=== PATIENT | female | born 1995 | race American Indian/Alaskan Native ===

== ENCOUNTER 2017-03-31 16:27 | Emergency (ER) | payer BC ==
[2017-03-31 16:47] VITALS: BP 136/90
--- NOTE | 2017-03-31 17:05 | Emergency Department Report ---
Chief Complaint: Abdominal Pain Stated Complaint: ABD PAIN,MIGRAINES Time Seen by Provider: 03/31/17 17:01 - HPI History of Present Illness: PT c/o abd pain x 2 days pt states she is eating more than usual - ROS Review of Systems: - f/c + nausea - vomiting - Exam Vital Signs: Vital Signs 03/31/17 16:43 Temperature 99 F Pulse Rate 90 Respiratory 18 Rate Blood Pressure 136/90 O2 Sat by Pulse 100 Oximetry Physical Exam: pt looks well, non toxic. abd soft pt has mild tenderness to LLQ and RUQ, + tenderness to RLQ MSE screening note: Focused history and physical exam performed. Due to findings the following was ordered: labs ED Disposition for MSE Condition: Stable Instructions: Abdominal Pain (ED)
[2017-03-31 17:39] LABS: Eosinophils % (Auto) 5.1 % (0.0-4.3); Hematocrit 38.9 % (30.3-42.9); Hemoglobin 12.7 gm/dl (10.1-14.3); Mean Corpuscular HGB Conc 33 % (30-34); Mean Corpuscular Hemoglobin 28 pg (28-32); Mean Corpuscular Volume 86 fl (79-97); Platelet Count 276 K/mm3 (140-440); Red Blood Count 4.54 M/mm3 (3.65-5.03); Red Cell Distribution Width 13.2 % (13.2-15.2); White Blood Count 8.6 K/mm3 (4.5-11.0)
[2017-03-31 17:52] LABS: Alanine Aminotransferase 19 units/L (7-56); Albumin 4.2 g/dL (3.9-5); Albumin/Globulin Ratio 1.3 %; Alkaline Phosphatase 75 units/L (35-129); Anion Gap 18 mmol/L; BUN/Creatinine Ratio 11.25; Blood Urea Nitrogen 9 mg/dL (7-17); Calcium 9.4 mg/dL (8.4-10.2); Carbon Dioxide 25 mmol/L (22-30); Chloride 103.2 mmol/L (98-107); Glucose 83 mg/dL (65-100); Lipase 20 units/L (13-60); Potassium 3.8 mmol/L (3.6-5.0); Sodium 142 mmol/L (137-145); Total Protein 7.4 g/dL (6.3-8.2)
[2017-03-31 18:59] LABS: Bilirubin,Urine NEG (Negative); Blood,Urine NEG (Negative); Ketones,Urine NEG (Negative); Leukocyte Esterase,Urine NEG (Negative); Mucus,Urine FEW /HPF; Nitrite,Urine NEG (Negative); Protein,Urine <15 mg/dL mg/dL (Negative); RBC,Urine < 1.0 /HPF (0.0-6.0); Urobilinogen,Urine < 2.0 mg/dL (<2.0); WBC,Urine < 1.0 /HPF (0.0-6.0)
--- NOTE | 2017-03-31 21:40 | Emergency Department Report ---
ED Abdominal Pain HPI - General Chief Complaint: Abdominal Pain Stated Complaint: ABD PAIN,MIGRAINES Time Seen by Provider: 03/31/17 17:01 Source: patient Mode of arrival: Ambulatory Limitations: No Limitations - History of Present Illness Initial Comments: This is a 21-year-old female well-nourished with nontoxic or ill in appearance but presents with diffuse abdominal pain 2 days. Patient stated has been having shooting on dental pain that is all over and described as sharp. Patient also states she had a migraine earlier today with mild nausea but denies migraine headaches currently now. Patient denies headache. Denies fever , chills, chest pain, shortness of breath, nausea, vomiting, numbness, tingling , stiff neck. Patient stated after eating she has epigastric pain that is described as burning sensation. Patient denies any significant past medical history. Last menstrual 03/12/17. Allergies to penicillin and codeine. MD Complaint: abdominal pain (diffuse) -: Gradual, days(s) (2) Location: diffuse Radiation: epigastric Migration to: no migration Severity: mild Severity scale (0 -10): 4 Quality: sharp Consistency: intermittent Improves With: nothing Worsens With: eating Associated Symptoms: denies: nausea, vomiting, diarrhea, fever, chills, constipation, dysuria, hematemesis, hematochezia, melena, hematuria, anorexia, syncope - Related Data LMP Date: 03/12/17 Allergies Allergy/AdvReac Type Severity Reaction Status Date / Time Penicillins Allergy Unknown Verified 03/31/17 16:47 codeine AdvReac Vomiting Verified 03/31/17 16:47 ED Review of Systems ROS: Stated complaint: ABD PAIN,MIGRAINES Other details as noted in HPI Constitutional: denies: chills, fever Eyes: denies: eye pain, eye discharge, vision change ENT: denies: ear pain, throat pain Respiratory: denies: cough, shortness of breath, wheezing Cardiovascular: denies: chest pain, palpitations Endocrine: no symptoms reported Gastrointestinal: denies: abdominal pain, nausea, diarrhea Genitourinary: denies: urgency, dysuria, discharge Musculoskeletal: denies: back pain, joint swelling, arthralgia Skin: denies: rash, lesions Neurological: denies: headache, weakness, paresthesias Psychiatric: denies: anxiety, depression Hematological/Lymphatic: denies: easy bleeding, easy bruising ED Past Medical Hx - Past Medical History Previous Medical History?: No - Surgical History Past Surgical History?: No - Social History Smoking Status: Never Smoker Substance Use Type: Alcohol ED Physical Exam - General Limitations: No Limitations General appearance: alert, in no apparent distress - Head Head exam: Present: atraumatic, normocephalic, normal inspection - Eye Eye exam: Present: normal appearance, PERRL, EOMI. Absent: scleral icterus, conjunctival injection, nystagmus, periorbital swelling, periorbital tenderness Pupils: Present: normal accommodation - ENT ENT exam: Present: normal exam, normal orophraynx, mucous membranes moist, TM's normal bilaterally, normal external ear exam - Neck Neck exam: Present: normal inspection, full ROM. Absent: tenderness, meningismus, lymphadenopathy, thyromegaly - Respiratory Respiratory exam: Present: normal lung sounds bilaterally. Absent: respiratory distress, wheezes, rales, rhonchi, stridor, chest wall tenderness, accessory muscle use, decreased breath sounds, prolonged expiratory - Cardiovascular Cardiovascular Exam: Present: regular rate, normal rhythm, normal heart sounds. Absent: bradycardia, tachycardia, irregular rhythm, systolic murmur, diastolic murmur, rubs, gallop - GI/Abdominal GI/Abdominal exam: Present: soft, normal bowel sounds. Absent: distended, tenderness, guarding, rebound, rigid, diminished bowel sounds, hyperactive bowel sounds, hypoactive bowel sounds, mass, bruit, pulsatile mass, hernia - Expanded GI/Abdominal Exam Expanded GI/Abdominal exam: Absent: psoas sign, obturator sign, heel tap sign, Vieyra's sign, Rovsing's sign, tenderness at Mcburney's Point, ascites - Rectal Rectal exam: Present: deferred - Extremities Exam Extremities exam: Present: normal inspection, full ROM, normal capillary refill. Absent: tenderness, pedal edema, joint swelling, calf tenderness - Back Exam Back exam: Present: normal inspection, full ROM. Absent: tenderness, CVA tenderness (R), CVA tenderness (L), muscle spasm, paraspinal tenderness, vertebral tenderness, rash noted - Neurological Exam Neurological exam: Present: alert, oriented X3, CN II-XII intact, normal gait - Psychiatric Psychiatric exam: Present: normal affect, normal mood - Skin Skin exam: Present: warm, dry, intact, normal color. Absent: rash ED Course Vital Signs 03/31/17 16:43 Temperature 99 F Pulse Rate 90 Respiratory 18 Rate Blood Pressure 136/90 O2 Sat by Pulse 100 Oximetry - Reevaluation(s) Reevaluation #1: 03/31/17 21:58 Patient is eating and talking with her boyfriend with no signs of distress noted. ED Medical Decision Making - Lab Data Result diagrams: 03/31/17 17:06 03/31/17 17:06 - Medical Decision Making Ed course: This is a 21-year-old female that presents with diffuse abdominal pain 1- CBC, BMP, UA, and test has been obtained with normal results. 2- CT abd with contrast has been obtained with normal findings. 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 4- at time time of discharge, the patient does not seem toxic or ill in appearance. No acute signs of distress noted. Patient agrees to discharge treatment plan of care. No further questions noted by the patient. Critical care attestation.: If time is entered above; I have spent that time in minutes in the direct care of this critically ill patient, excluding procedure time. ED Disposition Clinical Impression: Abdominal pain Qualifiers: Abdominal location: generalized Qualified Code(s): R10.84 - Generalized abdominal pain Disposition: DC-01 TO HOME OR SELFCARE Is pt being admited?: No Does the pt Need Aspirin: No Condition: Stable Instructions: Abdominal Pain (ED) Additional Instructions: Follow-up with her primary care doctor/underwater welder in 3-5 days or if symptoms worsen return back to emergency room as soon as possible. Referrals: CHELSIE HIGH MD [Primary Care Provider] - 3-5 Days [facility] [Provider Group] - 3-5 Days HUSEYIN HAGER JR, MD [Staff Physician] - 3-5 Days [facility] [Outside] - 3-5 Days [facility] [Outside] - 3-5 Days Forms: Work/School Release Form(ED)
[2017-03-31] MEDS ORDERED: NACL ONE (23:10)
--- NOTE | 2017-03-31 23:48 | Cat Scan Report ---
FINAL REPORT PROCEDURE: CT ABDOMEN PELVIS W CON TECHNIQUE: Computerized axial tomography of the abdomen and pelvis was performed after the IV injection of iodinated nonionic contrast. HISTORY: abd pain COMPARISON: No prior studies are available for comparison. FINDINGS: Visualized lower thorax: No significant abnormality. Liver: Normal size and attenuation. Spleen: Normal size and attenuation. Gallbladder and biliary system: Normal. Pancreas: Normal. Adrenals: Normal. Kidneys: Normal. GI tract: There is no bowel obstruction, colitis or enteritis. The appendix is normal.. Lymph nodes and mesentery: Normal. Vasculature: Normal. Bladder: Normal. Reproductive organs: The uterus and ovaries are unremarkable. There is a 4 centimeter loculated fluid collection adjacent to the left ovary which could be an exophytic cyst or free fluid. There is additional free fluid in the pelvis suggesting possible ovarian cyst rupture.. Peritoneum: There is no free air, peritoneal abscess or mesenteric adenopathy.. Musculoskeletal structures: No significant abnormality. Other: None. IMPRESSION: There is no bowel obstruction, colitis or enteritis. The appendix is normal.. The uterus and ovaries are unremarkable. There is a 4 centimeter loculated fluid collection adjacent to the left ovary which could be an exophytic cyst or free fluid. There is additional free fluid in the pelvis suggesting possible ovarian cyst rupture.. There is no free air, peritoneal abscess or mesenteric adenopathy..
== END 2017-04-01 01:10 | disposition home or self-care (01) ==
LOC: ED 16:27
DX: R10.84 Generalized abdominal pain (principal); Z88.5 Allergy status to narcotic agent; Z88.0 Allergy status to penicillin
CPT/HCPCS: 36415; 74177; 80053; 81001; 83690; 84703; 85025; 99284; Q9967